=== PATIENT | male | born 1955 | race Caucasian/White ===

== ENCOUNTER 2017-07-18 10:45 | Emergency (ER) ==
[2017-07-18 10:56] VITALS: BP 164/102; TEMP 98.5; BMI 30.5
[2017-07-18] MEDS ORDERED: MORPHINE 10 MG/ML SYRINGE IVP STA (10:57)
[2017-07-18] MEDS ORDERED: ZOFRAN 4 MG/2 ML IVP STA (10:57)
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
== END 2017-07-18 13:27 | disposition short-term general hospital (02) ==
LOC: ED 10:45
DX: S71.102A Unspecified open wound, left thigh, initial encounter (principal); W32.0XXA Accidental handgun discharge, initial encounter; R00.0 Tachycardia, unspecified
CPT/HCPCS: 36415; 80053; 85025; 85730; 96374; 96375; 99285